=== PATIENT | female | born 1985 | race Two or more races ===

== ENCOUNTER 2019-11-24 08:21 | Inpatient (IN) | payer BC ==
[2019-11-24] VITALS (15 sets, daily range): BP systolic 90–135; BP diastolic 54–69
[~2019-11-24] VITALS: Ht 157.5 cm; Wt 78.9 kg
[~2019-11-24 08:21] MED LIST: ALBUTEROL SULF8.5 G1 INH; FLONASE ALLERG9.9 ML NS; JUNEL1 EAC1 PO; LEVOTHYROXINE75 MCG ORAL
[2019-11-24 09:31] LABS: HEMOGLOBIN 15.9 G/DL (12.0-16.0); MEAN CORPUSCULAR VOLUME 95 FL (80-99); PLATELET COUNT 226 K/UL (150-450); RED BLOOD COUNT 4.83 M/UL (4.20-5.40); RED CELL DISTRIBUTION WIDTH 11.3 % (11.6-14.8); WHITE BLOOD COUNT 12.2 K/UL (4.8-10.8)
[2019-11-24 09:39] LABS: ANION GAP 10 mmol/L (5-15); BLOOD UREA NITROGEN 6 mg/dL (7-18); CALCIUM 8.8 MG/DL (8.5-10.1); CARBON DIOXIDE 24 MMOL/L (21-32); CHLORIDE 106 MMOL/L (98-107); CREATININE 0.9 MG/DL (0.55-1.30); POTASSIUM 3.8 MMOL/L (3.5-5.1); SODIUM 140 MMOL/L (136-145)
[2019-11-24 09:40] LABS: INR 0.9 (0.9-1.1)
[2019-11-24] MEDS ORDERED: fentaNYL 100 mcg/2 mL IV ONE (09:44)
[2019-11-24] MEDS ORDERED: Midazolam 2mg/2ml Inj ONE (09:45)
[2019-11-24] MEDS ORDERED: Lidocaine 1% MPF 10mg/ml 5ml ONE (09:50)
[2019-11-24] MEDS ORDERED: Bupivacaine w/Epi 0.5% 30ml Vial INJ ONE (10:42)
[2019-11-24] MEDS ORDERED: Ropivacaine 5mg/ml Vial 20ml INJ ONE (10:42)
[2019-11-24] MEDS ORDERED: NeoSporin Gu Irrig 1ml Amp IRRIG ONE (10:42)
[2019-11-24] MEDS ORDERED: Bacitracin 50000 Units Vial ONE (10:42)
[2019-11-24] MEDS ORDERED: Rocuronium Bromide 50mg/5ml Inj IV ONE (10:44)
[2019-11-24] MEDS ORDERED: Succinylcholine 20mg/ml 10ml vial ONE (10:44)
[2019-11-24] MEDS ORDERED: cefOXitin 1gm Inj ONE (10:44)
[2019-11-24] MEDS ORDERED: TransDerm Scop 1.5mg/72HR Patch TDERMAL ONE (10:56)
[2019-11-24] MEDS ORDERED: NS Irrig 1000ml ONE (11:00)
[2019-11-24] MEDS ORDERED: Sterile Water Irrig 1000ml IRRIG ONE (11:00)
[2019-11-24] MEDS ORDERED: LR 1000ml ONE (11:00)
--- NOTE | 2019-11-24 11:00 | Pre-Procedure Note/Attestation ---
Pre-Procedure Note/Attestation Complete Prior to Procedure Planned Procedure: not applicable Procedure Narrative: abdominal myomectomy Indications for Procedure Pre-Operative Diagnosis: symptomatic mtyomata Attestation I attest that I discussed the nature of the procedure; its benefits; risks and complications; and alternatives (and the risks and benefits of such alternatives ), prior to the procedure, with the patient (or the patient's legal sales representative raw fibers). I attest that, if there was a reasonable possibility of needing a blood transfusion, the patient (or the patient's legal sales representative raw fibers) was given the [facility] standardized written summary, pursuant to the Amado Tiesha Blood Safety Act ([place] Health and Safety Code # 1645, as amended). I attest that I re-evaluated the patient just prior to the surgery and that there has been no change in the patient's H&P, except as documented below: Damien Bal MD Nov 24, 2019 11:00
--- NOTE | 2019-11-24 11:02 | Pre-Procedure Note/Attestation ---
Pre-Procedure Note/Attestation Complete Prior to Procedure Procedure Narrative: appendectomy Indications for Procedure Pre-Operative Diagnosis: pelvic lower abdominal pain Attestation I attest that I discussed the nature of the procedure; its benefits; risks and complications; and alternatives (and the risks and benefits of such alternatives ), prior to the procedure, with the patient (or the patient's legal communications representative). I attest that, if there was a reasonable possibility of needing a blood transfusion, the patient (or the patient's legal communications representative) was given the [facility] standardized written summary, pursuant to the Amado Tiesha Blood Safety Act ([place] Health and Safety Code # 1645, as amended). I attest that I re-evaluated the patient just prior to the surgery and that there has been no change in the patient's H&P, except as documented below: Kem Liz Nov 24, 2019 11:02
[2019-11-24] MEDS ORDERED: LR 1000ml 1,000 ML IVLG SCH (11:48)
--- NOTE | 2019-11-24 11:48 | Anethesia Preoperative Eval ---
Anesthesia Pre-op PMH/ROS General Date of Evaluation: Nov 24, 2019 Time of Evaluation: 10:50 Anesthesiologist: Arthur ASA Score: ASA 2 Mallampati Score Class I : Soft palate, uvula, fauces, pillars visible Class II: Soft palate, uvula, fauces visible Class III: Soft palate, base of uvula visible Class IV: Only hard plate visible Mallampati Classification: Class II Surgeon: Mally Diagnosis: Symptomatic uterine fibroids Surgical Procedure: Open myomectomy, appendectomy Anesthesia History: PONV Social History: smoking - h/o Family History: no anesthesia problems Allergies: Coded Allergies: AMOXICILLIN (Verified Allergy, Intermediate, hives, 11/24/19) Medications: see eMAR Patient NPO?: Yes Past Medical History Cardiovascular: Denies: HTN, CAD, VT, valve dz, arrhythmia, other Pulmonary: Reports: asthma - mild occasional inhalers; Denies: COPD, JOHN, other Gastrointestinal/Genitourinary: Reports: GERD - mild; Denies: CRI, ESRD, other Neurologic/Psychiatric: Reports: other - chronic pain; Denies: dementia, CVA, depression/anxiety, TIA Endocrine: Denies: DM, hypothyroidism, steroids, other HEENT: Denies: cataract (L), cataract (R), glaucoma, COMANCHE (L), COMANCHE (R), other Hematology/Immune: Denies: anemia, DVT, bleeding disorder, other Musculoskeletal/Integumentary: Reports: other - alopecia; Denies: OA, RA, DJD, DDD, edema PMH Narrative: as above PSxH Narrative: endometrial ablation Anesthesia Pre-op Phys. Exam Physician Exam Last Vital Signs Date Time Temp Pulse Resp B/P (MAP) Pulse Ox O2 Delivery O2 Flow Rate FiO2 11/24/19 09:17 Room Air 11/24/19 09:07 98.6 85 18 135/65 (88) 99 Constitutional: NAD Neurologic: CN 2-12 intact Cardiovascular: RRR, no M/R/G Respiratory: CTA Gastrointestinal: S/NT/ND Airway Exam Mallampati Score: Class II MO: full Neck: flexible ROM: full Teeth: intact Dentures: no upper, no lower Anesthesia Pre-op A/P Labs Hematology Test 11/24/19 09:15 White Blood Count 12.2 K/UL (4.8-10.8) H Red Blood Count 4.83 M/UL (4.20-5.40) Hemoglobin 15.9 G/DL (12.0-16.0) Hematocrit 46.0 % (37.0-47.0) Mean Corpuscular Volume 95 FL (80-99) Mean Corpuscular Hemoglobin 32.8 PG (27.0-31.0) H Mean Corpuscular Hemoglobin Concent 34.5 G/DL (32.0-36.0) Red Cell Distribution Width 11.3 % (11.6-14.8) L Platelet Count 226 K/UL (150-450) Mean Platelet Volume 7.4 FL (6.5-10.1) Neutrophils (%) (Auto) % (45.0-75.0) Lymphocytes (%) (Auto) % (20.0-45.0) Monocytes (%) (Auto) % (1.0-10.0) Eosinophils (%) (Auto) % (0.0-3.0) Basophils (%) (Auto) % (0.0-2.0) Differential Total Cells Counted 100 Neutrophils % (Manual) 86 % (45-75) H Lymphocytes % (Manual) 12 % (20-45) L Monocytes % (Manual) 1 % (1-10) Eosinophils % (Manual) 1 % (0-3) Basophils % (Manual) 0 % (0-2) Band Neutrophils 0 % (0-8) Platelet Estimate Adequate Platelet Morphology Normal Red Blood Cell Morphology Normal Coagulation Test 11/24/19 09:15 Prothrombin Time 10.0 SEC (9.30-11.50) Prothromb Time International Ratio 0.9 (0.9-1.1) Activated Partial Thromboplast Time 25 SEC (23-33) Chemistry Test 11/24/19 09:15 Sodium Level 140 MMOL/L (136-145) Potassium Level 3.8 MMOL/L (3.5-5.1) Chloride Level 106 MMOL/L (98-107) Carbon Dioxide Level 24 MMOL/L (21-32) Anion Gap 10 mmol/L (5-15) Blood Urea Nitrogen 6 mg/dL (7-18) L Creatinine 0.9 MG/DL (0.55-1.30) Estimat Glomerular Filtration Rate > 60 mL/min (>60) Glucose Level 99 MG/DL (74-106) Calcium Level 8.8 MG/DL (8.5-10.1) Urine Test Test 11/24/19 08:54 Urine HCG, Qualitative Negative (NEGATIVE) Studies Pre-op Studies: EKG - NSR Risk Assessment & Plan Assessment: ASA 2 Plan: GA with ETT, PONV prevention Status Change Before Surgery: No Pre-Antibiotics Drug: Cefoxitin `1gr Given Within 1 Hr of Incision: Yes Time Given: 11:26 Juancarlos Gibson MD Nov 24, 2019 11:48
[2019-11-24] MEDS ORDERED: TransDerm Scop 1.5mg/72HR Patch TDERMAL SCH (11:50)
[2019-11-24] MEDS ORDERED: Morphine Sulfate 10mg/ml Inj ONE (11:52)
[2019-11-24] MEDS ORDERED: Ketorolac 30mg Inj ONE (11:52)
[2019-11-24] MEDS ORDERED: Glycopyrrolate 0.2mg/ml 1ml Vial ONE (11:52)
[2019-11-24] MEDS ORDERED: Sodium Chloride 10ml vial INJ ONE (11:52)
[2019-11-24] MEDS ORDERED: Neostigmine 1mg/ml 10ml Inj ONE (11:52)
[2019-11-24] MEDS ORDERED: Meperidine 25mg/0.5ml Inj (FOR RIGORS ONLY) IV PRN (12:00)
[2019-11-24] MEDS ORDERED: Metoclopramide 10mg/2ml Inj IVP PRN (12:00)
[2019-11-24] MEDS ORDERED: DiphenhydrAMINE 50mg/ml Inj IVP PRN (12:00)
[2019-11-24] MEDS ORDERED: Acetaminophen (Non formulary) 100 ML IV ONE (12:00)
[2019-11-24] MEDS ORDERED: Ketorolac 30mg Inj IV PRN (12:00)
--- NOTE | 2019-11-24 12:16 | Brief Operative Note ---
Immediate Post Operative Note Operative Note Pre-op Diagnosis: pelvic lower abdominal pain Procedure: 1. open lysis of adhesions 2. open appendectomy 3. see Dr. Alcantara report Post-op Diagnosis: same as pre-op Surgeon: analilia liz md Additional Surgeons: jaquelin alcantara md Anesthesia: general, local Specimen: yes Complications: none Condition: stable Fluids: see Estimated Blood Loss: minimal Drains: none Implant(s) used?: No Analilia Liz Nov 24, 2019 12:16
--- NOTE | 2019-11-24 12:22 | Brief Operative Note ---
Immediate Post Operative Note Operative Note Pre-op Diagnosis: symptomatic mtyomata Procedure: abdominal myomectomy, lysis of adhesions, appendectomy Post-op Diagnosis: same as pre-op plus - pelvic adhesions Surgeon: [employer] Supervisor: latrell Anesthesiologist: jossie Anesthesia: general Specimen: yes Complications: none Condition: stable Fluids: 2000 cc lactated ringers Estimated Blood Loss: none Drains: none Implant(s) used?: No Damien Bal MD Nov 24, 2019 12:21
[2019-11-24] MEDS ORDERED: Milk of Magnesia 30ml Ud ORAL PRN (12:30)
[2019-11-24] MEDS ORDERED: Sennosides 8.6mg tab ORAL PRN (12:30)
[2019-11-24] MEDS ORDERED: Morphine Sulfate 2mg/ml Inj(IV/IM USE ONLY) IVP PRN (12:30)
--- NOTE | 2019-11-24 12:37 | Immediate Post-Op Evaluation ---
Immediate Post-Op Evalulation Immediate Post-Op Evalulation Procedure: Open abdominal myomectomy, appendectomy Date of Evaluation: Nov 24, 2019 Time of Evaluation: 12:36 IV Fluids: 1000 Blood Products: none Estimated Blood Loss: 50 Urinary Output: 250 Blood Pressure Systolic: 120 Blood Pressure Diastolic: 62 Pulse Rate: 84 Respiratory Rate: 20 O2 Sat by Pulse Oximetry: 99 Temperature (Fahrenheit): 98.1 Pain Score (1-10): 1 Nausea: No Vomiting: No Complications none Patient Status: reacts, patent, extubated, none Hydration Status: adequate Juancarlos Gibson MD Nov 24, 2019 12:37
[2019-11-24] MEDS ORDERED: Midazolam 2mg/2ml Inj IVP ONE (12:45)
--- NOTE | 2019-11-24 14:15 | NUR ---
NURSE NOTES: Received pt from PACU and report from OBI Howe. Pt awake, verbally responsive, alert and orient x4. On NC 2L. Breathing even and unlabored. No acute distress note. Denied any pain at this time. Vital signs stable. Surgical wound dressing C/D/I. Applied ice pack on surgical area. Wharton noted intact and patent draining yellow urine. IV site intact and patent. Pt on SCD. All belongings were accounted for. Oriented pt to room. Side rails up x2. Call light within reach. Will continue to monitor.
--- NOTE | 2019-11-24 14:44 | History and Physical ---
Tamera Christy REVENUE OFFICER 11/24/19 1444: History of Present Illness General Date patient seen: Nov 24, 2019 Time patient seen: 13:45 Reason for Hospitalization: elective surgery Present Illness HPI 34 y/old female with PMH of hypothyroidism, mild asthma fibroid uterus, s/ recent , UFE, presented for elective abdominal momectomy and appendectomy. Patient just undergone surgery and admitted to [facility] floor for further management. She is already awake and responsive. Hemodynamically stable. She reports some soreness at the incision site. No other complaints. No chest pain , no SOB No cough or congestion. Preop COVID 19 negative. No n/v/diarrhea. No recent dysuria. Allergy: Reports allergy to Amoxicillin/hives, unsute if able to tolerate other PCNs. Social: prior hx of smoking 3-4 cig/day for few years, quit about a week ago. Denies ETOH abuse and illicit drug use. Not . Works at [employer] as a [employer] character '[employer]", currently not working due to global pandemic. Residence: lives at home at [facility] Allergies: Coded Allergies: AMOXICILLIN (Verified Allergy, Intermediate, hives, 11/24/19) COVID-19 Screening Contact w/high risk pt: No Experienced COVID-19 symptoms?: No Medication History Scheduled Albuterol Sulfate* (Albuterol Sulfate Hfa*), 2 PUFF INH PRN, (Reported) Fluticasone Propionate (Flonase Allergy Relief), 9.9 ML NS PRN, (Reported) Levothyroxine Sodium* (Levothyroxine Sodium*), 150 MCG ORAL DAILY, (Reported) Norethindrone A-E Estradiol (Junel), 1 EACH PO DAILY, (Reported) Patient History Healthcare decision maker Resuscitation status Advanced Directive on File Review of Systems Constitutional: Reports: no symptoms Eye: Reports: no symptoms ENT: Reports: no symptoms Respiratory: Reports: other - hx of mild asthma, only on prn Albuterol inhaler Cardiovascular: Reports: no symptoms Gastrointestinal: Reports: no symptoms Genitourinary: Reports: other - hx of fibroid uteris, s/p prior UFE Musculoskeletal: Reports: no symptoms Skin: Reports: no symptoms Psychiatric: Reports: no symptoms Neurological: Reports: no symptoms Endocrine: Reports: other - hypothyroidism Hematologic/Lymphatic: Reports: no symptoms Physical Exam General Appearance: no apparent distress, alert - awake, young female Lines, tubes and drains: peripheral HEENT: normocephalic, atraumatic, anicteric, PERRL Neck: non-tender, normal alignment, supple Respiratory/Chest: chest wall non-tender, lungs clear, no respiratory distress , no accessory muscle use Cardiovascular/Chest: normal peripheral pulses, normal rate Abdomen: soft - no BS, mild diffused tenderness, large abdominal dressing lower abdomen C/D/I Extremities: normal range of motion, non-tender, no calf tenderness, normal capillary refill Skin Exam: normal pigmentation, warm/dry, other - some tattoos noted 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, no motor/sensory deficits, alert, oriented x 3, responsive Last 24 Hour Vital Signs Date Time Temp Pulse Resp B/P (MAP) Pulse Ox O2 Delivery O2 Flow Rate FiO2 11/24/19 13:49 65 15 131/68 98 Nasal Cannula 3 11/24/19 13:49 97.9 11/24/19 13:34 84 13 126/67 97 Nasal Cannula 3 11/24/19 13:23 97.9 11/24/19 13:19 79 13 118/64 98 Nasal Cannula 3 11/24/19 13:08 70 14 131/62 98 Nasal Cannula 3 11/24/19 12:53 71 17 124/64 98 Simple Mask 6 11/24/19 12:49 72 11 124/61 97 Simple Mask 6 11/24/19 12:39 77 19 126/59 97 Simple Mask 6 11/24/19 12:37 84 20 99 11/24/19 12:34 84 16 124/63 98 Simple Mask 6 11/24/19 12:29 98.2 89 15 128/54 98 Simple Mask 6 11/24/19 09:17 Room Air 11/24/19 09:07 98.6 85 18 135/65 (88) 99 Laboratory Tests Test 11/24/19 08:54 11/24/19 09:15 Urine HCG, Qualitative Negative (NEGATIVE) White Blood Count 12.2 K/UL (4.8-10.8) H Red Blood Count 4.83 M/UL (4.20-5.40) Hemoglobin 15.9 G/DL (12.0-16.0) Hematocrit 46.0 % (37.0-47.0) Mean Corpuscular Volume 95 FL (80-99) Mean Corpuscular Hemoglobin 32.8 PG (27.0-31.0) H Mean Corpuscular Hemoglobin Concent 34.5 G/DL (32.0-36.0) Red Cell Distribution Width 11.3 % (11.6-14.8) L Platelet Count 226 K/UL (150-450) Mean Platelet Volume 7.4 FL (6.5-10.1) Neutrophils (%) (Auto) % (45.0-75.0) Lymphocytes (%) (Auto) % (20.0-45.0) Monocytes (%) (Auto) % (1.0-10.0) Eosinophils (%) (Auto) % (0.0-3.0) Basophils (%) (Auto) % (0.0-2.0) Differential Total Cells Counted 100 Neutrophils % (Manual) 86 % (45-75) H Lymphocytes % (Manual) 12 % (20-45) L Monocytes % (Manual) 1 % (1-10) Eosinophils % (Manual) 1 % (0-3) Basophils % (Manual) 0 % (0-2) Band Neutrophils 0 % (0-8) Platelet Estimate Adequate Platelet Morphology Normal Red Blood Cell Morphology Normal Prothrombin Time 10.0 SEC (9.30-11.50) Prothromb Time International Ratio 0.9 (0.9-1.1) Activated Partial Thromboplast Time 25 SEC (23-33) Sodium Level 140 MMOL/L (136-145) Potassium Level 3.8 MMOL/L (3.5-5.1) Chloride Level 106 MMOL/L (98-107) Carbon Dioxide Level 24 MMOL/L (21-32) Anion Gap 10 mmol/L (5-15) Blood Urea Nitrogen 6 mg/dL (7-18) L Creatinine 0.9 MG/DL (0.55-1.30) Estimat Glomerular Filtration Rate > 60 mL/min (>60) Glucose Level 99 MG/DL (74-106) Calcium Level 8.8 MG/DL (8.5-10.1) Height (Feet): 5 Height (Inches): 2.00 Weight (Pounds): 155 Medications Current Medications Medications (Trade) Dose Ordered Sig/Dasha Route PRN Reason Start Time Stop Time Status Last Admin Dose Admin Acetaminophen (Tylenol) 650 mg Q4H PRN ORAL FEVER 11/24/19 12:30 12/24/19 12:29 Al Hydroxide/Mg Hydroxide (Mylanta) 15 ml Q6H PRN ORAL DYSPEPSIA 11/24/19 12:30 12/24/19 12:29 Ciprofloxacin 200 ml @ 200 mls/hr Q12HR IVPB 11/24/19 21:00 12/01/19 20:59 UNV Dextrose/ Electrolytes 1,000 ml @ 100 mls/hr Q10H IV 11/24/19 12:18 12/24/19 12:17 UNV Diphenhydramine HCl (Benadryl) 25 mg Q15M PRN IVP Itching 11/24/19 12:00 11/24/19 21:00 Diphenhydramine HCl (Benadryl) 25 mg Q8H PRN ORAL Itching/Pruritis 11/24/19 12:30 12/24/19 12:29 Docusate Sodium (Colace) 100 mg TWICE A DAY ORAL 11/24/19 18:00 12/24/19 17:59 Magnesium Hydroxide (Mom) 30 ml BIDPRN PRN ORAL Constipation 11/24/19 12:30 12/24/19 12:29 Meperidine HCl (Demerol) 25 mg Q15M PRN IV Shivering 11/24/19 12:00 11/24/19 21:00 11/24/19 12:53 Metoclopramide HCl (Reglan) 10 mg Q1H PRN IVP Nausea & Vomiting 11/24/19 12:00 11/24/19 21:00 Metronidazole 100 ml @ 100 mls/hr Q8HR IVPB 11/24/19 14:00 12/01/19 13:59 UNV Morphine Sulfate (Morphine Sulfate) 1 mg Q4H PRN IVP pain scale 1-3 11/24/19 12:30 12/01/19 12:29 Morphine Sulfate (Morphine Sulfate) 2 mg Q4H PRN IVP pain scale 4-6 11/24/19 12:30 12/01/19 12:29 Morphine Sulfate (Morphine Sulfate) 4 mg Q4H PRN IVP pain score 7-10 11/24/19 12:30 12/01/19 12:29 Ondansetron HCl (Zofran) 4 mg Q6H PRN IVP Nausea & Vomiting 11/24/19 12:30 12/24/19 12:29 Scopolamine (TransDerm Scop 1.5mg/72HR Patch) 1.5 mg ONCE TDERMAL 11/24/19 11:50 11/24/19 23:59 Sennosides (Senokot) 8.6 mg BIDPRN PRN ORAL Constipation 11/24/19 12:30 12/24/19 12:29 Temazepam (RestoriL) 7.5 mg DAILYPRN PRN ORAL Insomnia 11/24/19 12:30 12/01/19 12:29 Assessment/Plan Assessment/Plan: ASSESSMENT uterine fibroids s/p abdominal myomectomy and appendectomy s/p recent UFE mild asthma prior smoker- quit hypothyroidism Allergy to Amoxicillin PLAN OF CARE MS floor NPO IVF empiric abx agree with Cipro and Flagyl, given allergy to Amoxicillin /unknown if will tolerate other PCN derivative pain management IS at the bedside OOB to chair in am as tolerated surgical wound care per surgeon recs resume diet when bowel function returns resume Synthroid HHN prn DVT prophylaxis with SCD bowel regimen when start eating supportive care case discussed and evaluated by supervising physician Danie Christensen MD 11/24/19 1809: History of Present Illness General Reason for Hospitalization: elective surgery Present Illness Allergies: Coded Allergies: AMOXICILLIN (Verified Allergy, Intermediate, hives, 11/24/19) Medication History Scheduled Albuterol Sulfate* (Albuterol Sulfate Hfa*), 2 PUFF INH PRN, (Reported) Fluticasone Propionate (Flonase Allergy Relief), 9.9 ML NS PRN, (Reported) Levothyroxine Sodium* (Levothyroxine Sodium*), 150 MCG ORAL DAILY, (Reported) Norethindrone A-E Estradiol (Junel), 1 EACH PO DAILY, (Reported) Assessment/Plan Assessment/Plan: Patient and examined with . Agree with above A&P as it reflects our joint deliberations. POD 0 doing well, pain control/supportive care, IS, cristian-operative Abx, OOB, DVT Px, advance diet per surgery Tamera Christy NP Nov 24, 2019 14:44 Danie Christensen MD Nov 24, 2019 18:09
[2019-11-24] MEDS: Morphine Sulfate 4mg/ml Inj (IV USE ONLY) IVP PRN ×2 (15:45→20:16)
--- NOTE | 2019-11-24 16:07 | NUR ---
CASE MANAGEMENT:INITIAL REVIEW 34YR OLD FEMALE HERE FOR SCHEDULE SURGERY CC:PELVIC LOWER ABDOMINAL PAIN SI:SYMPTOMATIC UTERINE FIBROIDS 98.6 85 18 135/65 99% ON RA WBC 12.2 IS:IN SURGERY NOW OPEN OMENTECTOMY APPENDECTOMY \: 3E MED SURG UNIT DCP:HOME WHEN STABLE
[2019-11-24] MEDS: D5 1/2NS w/KCl 20mEq 1,000 ML IV SCH (16:49)
--- NOTE | 2019-11-24 17:45 | Operative Note - Dictated ---
DATE OF OPERATION: 11/24/2019 PREOPERATIVE DIAGNOSES: 1. Pelvic lower abdominal pain. 2. Symptomatic myomata. POSTOPERATIVE DIAGNOSES: 1. Pelvic lower abdominal pain. 2. Symptomatic myomata. OPERATION: 1. Open lysis of adhesions. 2. Open appendectomy. 3. Performed by Dr. Damien Bal abdominal myomectomy. ATTENDING SURGEON: Kem Liz MD. OTHER SURGEON: Damien Bal MD. ANESTHESIOLOGIST: Juancarlos Gibson MD. ANESTHESIA: General INCOME TAX AUDITOR. ESTIMATED BLOOD LOSS: Minimal. IV FLUIDS: Please see anesthesia records. COMPLICATIONS: None. DRAINS: None. COUNTS: Sponge and needle counts were correct x2. WOUND CLASSIFICATION: Class 3. SPECIMENS: 1. Myomata from Dr. Bal' case. 2. Appendix. INDICATIONS FOR PROCEDURE: This is a very pleasant 34-year-old female who was initially seen by Dr. Damien Bal for evaluation of abdominal pelvic pain. She was identified to have multiple myomata that were symptomatic and causing discomfort. Furthermore, in the past, patient has had complaints of pelvic pain and lower abdominal pain that has purported and confused with appendicitis given her symptoms and clinical presentation. She is currently planned to have an abdominal myomectomy by Dr. Damien Bal and he has consulting me in evaluation and consideration of appendectomy given the patient's symptoms, concerns, and presenting history. I had a long discussion with the patient in regards to her findings, care, and care plan. We have discussed the potential appendicitis in the future and potential missed diagnosis as well as wrong diagnosis given her other abdominal complaints and history. She has ongoing lower abdominal pain for some time now and examinations purported and consistent with potential appendicitis in the past and given this, a consideration for an appendectomy has been made. In discussing the risks, benefits, and alternatives, patient has consented and requested to proceed with appendectomy during myomata. Furthermore given the patient's history of embolization and known likelihood of intraabdominal adhesions postprocedure, Dr. Bal asked me to assist him with this portion of procedure as well as the evaluation of the small bowel and adhesions as necessary. OPERATIVE NOTE: Patient was taken to the operating room and placed on the operating table in supine position with bilateral arms out. All bony prominences were well padded. SCDs placed. Preoperative time-out taken to identify the patient, procedure, operative staff, and surgical staff. General anesthesia was induced. Patient was intubated. The abdomen was clipped, prepped, and draped in standard surgical fashion. Dr. Bal made a Pfannenstiel incision, carried down through subcutaneous tissue to the fascia. Fascia was incised and entry into the peritoneal cavity was obtained. Retractors were placed upon it to assist with Dr. Bal in obtaining visualization of the uterus and omental adhesions identified in the pelvis myomata of the dome of the uterus and open lysis of adhesions was performed with Metzenbaum scissors and electrocautery as necessary. Once this was cleared and Dr. Bal completed his portion of the procedure, I identified the cecum followed by teniae down to the base where an appendix was identified. A window was made between the base of the appendix and mesoappendix. A 0 Vicryl tie was placed at the base of the appendix and it was ligated. It was then divided with electrocautery. The appendiceal base was then reinforced with a second layer of Lembert 3-0 silk interrupted sutures. The mesoappendix was then divided using electrocautery and once the artery was identified, it was clamped and ligated using a 3-0 silk tie. Upon completion, satisfactory appendectomy was performed open without complication. The base looked healthy, viable as well as the mesentery without any bleeding or leakage. The abdominal contents were allowed to fall back into the anatomic position. The omentum was placed back into the pelvis. Hemostasis was identified. The fascia was closed followed by the subcutaneous tissue and the skin. Dressings were applied. Patient tolerated the procedure well, was extubated, and was taken to postanesthetic care unit in stable condition. Kem Liz M.D. DR: NICHELLE JOB#: [id number] CC:
[2019-11-24] MEDS: Docusate 100mg cap ORAL SCH (18:00)
--- NOTE | 2019-11-24 19:17 | NUR ---
NURSE HAND-OFF: Important Events on Shift:Post-op Patient Status: stable Diet: NPO Pending Orders: N Pending Results/Labs:N Pending MD notification:N Latest Vital Signs: Temperature 97.8 , Pulse 99 , B/P 110 /63 , Respiratory Rate 20 , O2 SAT 97 , Nasal Cannula, O2 Flow Rate 3 . Vital Sign Comment: stable Latest Michael Fall Score: 35 Fall Risk: Medium Risk Safety Measures: Call light , Bed Alarm , Side Rails Side Rails x1, Bed position . Fall Precautions: N Report given to OBI He.
--- NOTE | 2019-11-24 19:18 | NUR ---
NURSE NOTES: Received report from OBI Elmore. Rounding is done. Patient is a/ox4, c/o pain 10/23 and will give medication as ordered. No any distress noted and breathing is even and unlabored on RA. Dressing on abdomen is c/d/i. IV site is intact and patent. IV fluid is running. [place] catheter is in place and draining to gravity. IS at bedside and encouraged to use. Bed is on alarm, locked, and lowest position. Call light within reach. Will continue to monitor.
[2019-11-24] MEDS ORDERED: LEVOXYL150 MCG ORAL (19:26)
[2019-11-24] MEDS ORDERED: JUNEL FE 1.5 M1 EACH PO (19:26)
--- NOTE | 2019-11-24 20:00 | Operative Note - Dictated ---
DATE OF OPERATION: 11/24/2019 SURGEON: Damien Ching MD CO-SURGEON: Kem Liz MD ANESTHESIA: General endotracheal. ANESTHESIOLOGIST: Juancarlos Gibson MD PREOPERATIVE DIAGNOSES: Symptomatic leiomyomata and pelvic pain. POSTOPERATIVE DIAGNOSES: Symptomatic leiomyomata and pelvic pain plus pelvic adhesions. PROCEDURES: Lysis of adhesions, abdominal myomectomy, and appendectomy (dictated by Dr. Liz as a separate procedure). ESTIMATED BLOOD LOSS: Less than 10 mL. COMPLICATIONS: None. SPONGE AND NEEDLE COUNT: Correct x2. INDICATIONS AND FINDINGS: Patient is a 34-year-old female who had undergone a successful uterine artery embolization. However with shrinkage of the myomata, the patient complained of pelvic pain and presents for relief of this pain. No other explanations for the pain is found in the patient's history. At the time of laparotomy, the patient's uterus was enlarged, irregular with multiple pedunculated subserous and intramural myomata. Pelvic adhesions were seen. The tubes and ovaries were grossly normal on both sides. The patient's appendix was removed prophylactically by Dr. Liz to rule out any mistaken causes for pelvic pain in the future. Findings at the time of laparotomy were noted and at the completion of the procedure there was no evidence of disruption of the genitourinary or gastrointestinal tract. Bleeding was controlled. PROCEDURE IN DETAIL: Under general endotracheal anesthesia, patient was prepped and draped and placed in the dorsal position. A Wharton catheter inserted. A Pfannenstiel incision used to enter the abdominal cavity. The uterus was delivered out of the Pfannenstiel incision and inspected. Findings described above were noted. The first procedure was a myomectomy. The serosa of the uterus was injected with dilute Pitressin (20 units of Pitressin and 50 mL of saline) and excised with cautery current. The myoma was excised from the intramural portion of the myoma and 2 pedunculated myomata were then excised and cleared off the fallopian tubes and round ligaments. A total of 5 myomata greater than 250 g were removed. The uterus was then closed in 2 layers with interrupted sutures of 1 chromic suture material and the bleeding points were cauterized. Dr. Liz then proceeded with lysis of adhesions and appendectomy. At the end of the case, the abdomen was copiously irrigated. No bleeding points were seen. Urine was clear. The abdominal cavity was closed. The peritoneal serosa was closed with interrupted sutures of 0 Vicryl. The muscle approximated with 0 Vicryl. The fascia was then closed with a running 1 Vicryl suture. The subcutaneous tissue was closed with interrupted 3-0 plain suture and the skin closed with skin clips. Patient tolerated the procedure and left the operating room in stable condition. Damien Ching M.D. DR: Pamela JOB#: [id number] CC: ALIS
[2019-11-25] VITALS: BP 100/64
[2019-11-25] MEDS: Morphine Sulfate 4mg/ml Inj (IV USE ONLY) IVP PRN ×4 (01:08→16:16)
[2019-11-25] MEDS: D5 1/2NS w/KCl 20mEq 1,000 ML IV SCH ×3 (01:08→14:30)
[2019-11-25 04:00] VITALS: BP 115/58
[2019-11-25 06:23] LABS: BASOPHILS % (AUTO) 0.4 % (0.0-2.0); EOSINOPHILS % (AUTO) 1.9 % (0.0-3.0); HEMATOCRIT 39.4 % (37.0-47.0); HEMOGLOBIN 13.3 G/DL (12.0-16.0); LYMPHOCYTES % (AUTO) 15.4 % (20.0-45.0); MEAN CORPUSCULAR VOLUME 98 FL (80-99); MONOCYTES % (AUTO) 5.4 % (1.0-10.0); NEUTROPHILS % (AUTO) 76.9 % (45.0-75.0); PLATELET COUNT 201 K/UL (150-450); RED BLOOD COUNT 4.04 M/UL (4.20-5.40); RED CELL DISTRIBUTION WIDTH 11.6 % (11.6-14.8); WHITE BLOOD COUNT 9.4 K/UL (4.8-10.8)
[2019-11-25 06:44] LABS: ANION GAP 7 mmol/L (5-15); BLOOD UREA NITROGEN 5 mg/dL (7-18); CALCIUM 8.4 MG/DL (8.5-10.1); CARBON DIOXIDE 26 MMOL/L (21-32); CHLORIDE 104 MMOL/L (98-107); CREATININE 0.9 MG/DL (0.55-1.30); POTASSIUM 4.1 MMOL/L (3.5-5.1); SODIUM 137 MMOL/L (136-145)
--- NOTE | 2019-11-25 07:24 | NUR ---
NURSE HAND-OFF: Important Events on Shift:N/A Patient Status: [STABLE] Diet: [NPO EXCEPT ICE CHIPS AND MEDS] Pending Orders: [Y] Pending Results/Labs:[Y] Pending MD notification:[N] Latest Vital Signs: Temperature 99.8 , Pulse 65 , B/P 115 /58 , Respiratory Rate 18 , O2 SAT 95 , Room Air, O2 Flow Rate 3 . Vital Sign Comment: [STABLE] Latest Michael Fall Score: 35 Fall Risk: Medium Risk Safety Measures: Call light Within Reach, Bed Alarm Zone 2, Side Rails Side Rails x2, Bed position Low and Locked. Fall Precautions: Yellow Socks Door Sign Report given to [OLIVER CROCKER].
[2019-11-25 08:00] VITALS: BP 98/58
--- NOTE | 2019-11-25 08:00 | NUR ---
NURSE NOTES: Received report from Neri CROCKER. pt a/a/o x4 laying in bed with no signs of distress or other issues at this time. surgical dressing dry and intact. Wharton cath in place draining to gravity. IV on the right FA gauge #20 running D5 1/2 NS +20mEq@100ml/hr. call light within reach, bed in lowest position. side rales up x2. I will f/u as needed.
--- NOTE | 2019-11-25 08:14 | 48 Hour Post Anesthesia Eval ---
Post Anesthesia Evaluation Procedure: Open abdominal myomectomy, appendectomy Date of Evaluation: Nov 25, 2019 Time of Evaluation: 08:13 Blood Pressure Systolic: 116 0: 74 Pulse Rate: 68 Respiratory Rate: 20 Temperature (Fahrenheit): 98.6 O2 Sat by Pulse Oximetry: 98 Airway: patent Nausea: No Vomiting: No Pain Intensity: 3 Hydration Status: adequate Cardiopulmonary Status: stable Mental Status/LOC: patient returned to baseline Follow-up Care/Observations: n/a Post-Anesthesia Complications: none Follow-up care needed: N/A Juancarlos Gibson MD Nov 25, 2019 08:14
[2019-11-25] MEDS: Docusate 100mg cap ORAL SCH ×2 (08:33→16:15)
[2019-11-25] MEDS: Morphine Sulfate 2mg/ml Inj(IV/IM USE ONLY) IVP PRN (08:39)
--- NOTE | 2019-11-25 09:25 | NUR ---
PT EVALUATION NOTE Patient seen for initial evaluation. Patient presents with generalized weakness and pain with mobility. Patient instructed in log roll technique for in/OOB, able to perform with SBA. Transfers with SBA, no AD. Patient ambulates 125 ft with slowed pace, slightly unsteady however no loss of balance, hand hold assist for safety. Patient will benefit from skilled inpatient PT intervention to increase strength and postural stability for improved level of functional mobility and safety. Anticipate discharge home once medically cleared by MD. No DME needs identified at this time. Addendum: 11/25/19 at 1206 by BERYL DAVISON PT Amended: Links added.
--- NOTE | 2019-11-25 10:01 | General Surgery Progress Note ---
General Surgery-Progress Note Subjective Procedure Performed abdominal myomectomy, lysis of adhesions, appendectomy Symptoms: improved, pain decreased Objective Last 24 Hour Vital Signs Date Time Temp Pulse Resp B/P (MAP) Pulse Ox O2 Delivery O2 Flow Rate FiO2 11/25/19 09:00 Room Air 11/25/19 08:14 68 20 98 11/25/19 08:00 98.1 68 18 98/58 (71) 97 11/25/19 05:53 99.8 11/25/19 04:00 99.8 65 18 115/58 (77) 95 11/25/19 00:00 98.3 61 18 100/64 (76) 97 11/24/19 21:00 Room Air 11/24/19 20:00 98.0 58 18 90/63 (72) 98 11/24/19 16:00 97.8 99 20 110/63 (79) 97 11/24/19 15:01 97.5 78 132/60 (84) 11/24/19 14:30 97.8 75 130/67 (88) 11/24/19 14:04 97.9 65 13 128/69 97 Nasal Cannula 3 11/24/19 13:49 65 15 131/68 98 Nasal Cannula 3 11/24/19 13:49 97.9 11/24/19 13:34 84 13 126/67 97 Nasal Cannula 3 11/24/19 13:23 97.9 11/24/19 13:19 79 13 118/64 98 Nasal Cannula 3 11/24/19 13:08 70 14 131/62 98 Nasal Cannula 3 11/24/19 12:53 71 17 124/64 98 Simple Mask 6 11/24/19 12:49 72 11 124/61 97 Simple Mask 6 11/24/19 12:39 77 19 126/59 97 Simple Mask 6 11/24/19 12:37 84 20 99 11/24/19 12:34 84 16 124/63 98 Simple Mask 6 11/24/19 12:29 98.2 89 15 128/54 98 Simple Mask 6 I&O Intake and Output 11/24/19 11/25/19 19:00 07:00 Intake Total 1100 ml 1500 ml Output Total 530 ml 600 ml Balance 570 ml 900 ml Intake IV Total 1100 ml 1500 ml Output Urine Total 480 ml 600 ml Estimated Blood Loss 50 ml # Voids 1 Dressing: dry Wound: clean Drains: none Cardiovascular: RSR Respiratory: clear Abdomen: soft, flat, scaphoid, tenderness, present bowel sounds Extremities: no edema, no tenderness, no cyanosis Laboratory Tests Test 11/25/19 04:55 White Blood Count 9.4 K/UL (4.8-10.8) Red Blood Count 4.04 M/UL (4.20-5.40) L Hemoglobin 13.3 G/DL (12.0-16.0) Hematocrit 39.4 % (37.0-47.0) Mean Corpuscular Volume 98 FL (80-99) Mean Corpuscular Hemoglobin 32.9 PG (27.0-31.0) H Mean Corpuscular Hemoglobin Concent 33.7 G/DL (32.0-36.0) Red Cell Distribution Width 11.6 % (11.6-14.8) Platelet Count 201 K/UL (150-450) Mean Platelet Volume 7.6 FL (6.5-10.1) Neutrophils (%) (Auto) 76.9 % (45.0-75.0) H Lymphocytes (%) (Auto) 15.4 % (20.0-45.0) L Monocytes (%) (Auto) 5.4 % (1.0-10.0) Eosinophils (%) (Auto) 1.9 % (0.0-3.0) Basophils (%) (Auto) 0.4 % (0.0-2.0) Sodium Level 137 MMOL/L (136-145) Potassium Level 4.1 MMOL/L (3.5-5.1) Chloride Level 104 MMOL/L (98-107) Carbon Dioxide Level 26 MMOL/L (21-32) Anion Gap 7 mmol/L (5-15) Blood Urea Nitrogen 5 mg/dL (7-18) L Creatinine 0.9 MG/DL (0.55-1.30) Estimat Glomerular Filtration Rate > 60 mL/min (>60) Glucose Level 118 MG/DL (74-106) H Calcium Level 8.4 MG/DL (8.5-10.1) L Assessment Post-op Diagnosis labs stable post op, findings shared with patient Plan Additional Comments sequeira out, ambulate, heplock iv when ambulating. respiratory therapy for history of smoking. Damien Bal MD Nov 25, 2019:01
[2019-11-25] MEDS: Albuterol ud Inhalation HHN PRN (10:20)
--- NOTE | 2019-11-25 11:27 | Pulmonology Progress Note ---
Christy Tamera VOCATIONAL TEACHER 11/25/19 1127: Subjective Allergies: Coded Allergies: AMOXICILLIN (Verified Allergy, Intermediate, hives, 11/24/19) Subjective post op day #1 afebrile, mild leukocytosis resolved seen earlier by surgeon started on CL diet pain controlled Objective Last 24 Hour Vital Signs Date Time Temp Pulse Resp B/P (MAP) Pulse Ox O2 Delivery O2 Flow Rate FiO2 11/25/19 10:35 69 18 99 Room Air 21 77 18 97 11/25/19 10:19 77 18 97 Room Air 21 11/25/19 09:09 98.6 11/25/19 09:00 Room Air 11/25/19 08:14 68 20 98 11/25/19 08:00 98.1 68 18 98/58 (71) 97 11/25/19 05:53 99.8 11/25/19 04:00 99.8 65 18 115/58 (77) 95 11/25/19 00:00 98.3 61 18 100/64 (76) 97 11/24/19 21:00 Room Air 11/24/19 20:00 98.0 58 18 90/63 (72) 98 11/24/19 16:00 97.8 99 20 110/63 (79) 97 11/24/19 15:01 97.5 78 132/60 (84) 11/24/19 14:30 97.8 75 130/67 (88) 11/24/19 14:04 97.9 65 13 128/69 97 Nasal Cannula 3 11/24/19 13:49 65 15 131/68 98 Nasal Cannula 3 11/24/19 13:49 97.9 11/24/19 13:34 84 13 126/67 97 Nasal Cannula 3 11/24/19 13:23 97.9 11/24/19 13:19 79 13 118/64 98 Nasal Cannula 3 11/24/19 13:08 70 14 131/62 98 Nasal Cannula 3 11/24/19 12:53 71 17 124/64 98 Simple Mask 6 11/24/19 12:49 72 11 124/61 97 Simple Mask 6 11/24/19 12:39 77 19 126/59 97 Simple Mask 6 11/24/19 12:37 84 20 99 11/24/19 12:34 84 16 124/63 98 Simple Mask 6 8/10/20 12:29 98.2 89 15 128/54 98 Simple Mask 6 Intake and Output 11/24/19 11/25/19 19:00 07:00 Intake Total 1100 ml 1500 ml Output Total 530 ml 600 ml Balance 570 ml 900 ml Intake IV Total 1100 ml 1500 ml Output Urine Total 480 ml 600 ml Estimated Blood Loss 50 ml # Voids 1 Objective General Appearance: no apparent distress, alert - awake, young female Lines, tubes and drains: peripheral HEENT: normocephalic, atraumatic, anicteric, PERRL Neck: non-tender, normal alignment, supple Respiratory/Chest: chest wall non-tender, lungs clear, no respiratory distress , no accessory muscle use Cardiovascular/Chest: normal peripheral pulses, normal rate Abdomen: soft - no BS, mild diffused tenderness, lower abdominal dressing C/D/ I Extremities: normal range of motion, non-tender, no calf tenderness, normal capillary refill Skin Exam: normal pigmentation, warm/dry, body tattoos noted 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 grossly normal, no motor/sensory deficits, alert, oriented x 3, responsive Laboratory Tests 11/25/19 04:55: White Blood Count 9.4, Red Blood Count 4.04L, Hemoglobin 13.3, Hematocrit 39.4, Mean Corpuscular Volume 98, Mean Corpuscular Hemoglobin 32.9H, Mean Corpuscular Hemoglobin Concent 33.7, Red Cell Distribution Width 11.6, Platelet Count 201, Mean Platelet Volume 7.6, Neutrophils (%) (Auto) 76.9H, Lymphocytes (%) (Auto) 15.4L, Monocytes (%) (Auto) 5.4, Eosinophils (%) (Auto) 1.9, Basophils (%) (Auto ) 0.4, Sodium Level 137, Potassium Level 4.1, Chloride Level 104, Carbon Dioxide Level 26, Anion Gap 7, Blood Urea Nitrogen 5L, Creatinine 0.9, Estimat Glomerular Filtration Rate > 60, Glucose Level 118H, Calcium Level 8.4L Current Medications Medications (Trade) Dose Ordered Sig/Dasha Route PRN Reason Start Time Stop Time Status Last Admin Dose Admin Acetaminophen (Tylenol) 650 mg Q4H PRN ORAL FEVER 11/24/19 12:30 12/24/19 12:29 Al Hydroxide/Mg Hydroxide (Mylanta) 15 ml Q6H PRN ORAL DYSPEPSIA 11/24/19 12:30 12/24/19 12:29 Albuterol Sulfate (Proventil) 2.5 mg QIDPRN PRN HHN sob 11/24/19 14:30 11/29/19 14:29 11/25/19 10:20 Ciprofloxacin 200 ml @ 200 mls/hr Q12HR IV 11/24/19 21:00 12/01/19 20:59 11/25/19 08:33 Dextrose/ Electrolytes 1,000 ml @ 100 mls/hr Q10H IV 11/24/19 16:00 12/24/19 15:59 11/25/19 01:08 Diphenhydramine HCl (Benadryl) 25 mg Q8H PRN ORAL Itching/Pruritis 11/24/19 12:30 12/24/19 12:29 Docusate Sodium (Colace) 100 mg TWICE A DAY ORAL 11/24/19 18:00 12/24/19 17:59 11/25/19 08:33 Levothyroxine Sodium (Synthroid) 150 mcg Q24H ORAL 11/25/19 06:30 12/25/19 06:29 11/25/19 05:34 Magnesium Hydroxide (Mom) 30 ml BIDPRN PRN ORAL Constipation 11/24/19 12:30 12/24/19 12:29 Metronidazole 100 ml @ 100 mls/hr Q8HR IVPB 11/24/19 15:30 12/01/19 15:29 11/25/19 05:23 Morphine Sulfate (Morphine Sulfate) 1 mg Q4H PRN IVP pain scale 1-3 11/24/19 12:30 12/01/19 12:29 Morphine Sulfate (Morphine Sulfate) 2 mg Q4H PRN IVP pain scale 4-6 11/24/19 12:30 12/01/19 12:29 11/25/19 08:39 Morphine Sulfate (Morphine Sulfate) 4 mg Q4H PRN IVP pain score 7-10 11/24/19 12:30 12/01/19 12:29 11/25/19 05:23 Ondansetron HCl (Zofran) 4 mg Q6H PRN IVP Nausea & Vomiting 11/24/19 12:30 12/24/19 12:29 Sennosides (Senokot) 8.6 mg BIDPRN PRN ORAL Constipation 11/24/19 12:30 12/24/19 12:29 Temazepam (RestoriL) 7.5 mg DAILYPRN PRN ORAL Insomnia 11/24/19 12:30 12/01/19 12:29 Assessment/Plan Assessment/Plan ASSESSMENT uterine fibroids s/p abdominal myomectomy and appendectomy s/p recent UFE mild asthma prior smoker- quit hypothyroidism Allergy to Amoxicillin PLAN OF CARE MS floor CL diet - advance when passing gas IVF empiric abx agree with Cipro and Flagyl, given allergy to Amoxicillin /unknown if will tolerate other PCN derivative pain management IS at the bedside OOB to chair and ambulate as tolerated surgical wound care per surgeon recs resume Synthroid HHN prn DVT prophylaxis with SCD bowel regimen eating supportive care case discussed and evaluated by supervising physician Danie Christensen MD 11/26/19 1126: Subjective Allergies: Coded Allergies: AMOXICILLIN (Verified Allergy, Intermediate, hives, 11/24/19) Assessment/Plan Assessment/Plan Patient seen and examined with VOCATIONAL TEACHER. Agree with above A&P as it reflects our joint deliberations. Tamera Christy NP Nov 25, 2019 11:27 Danie Christensen MD Nov 26, 2019 11:26
[2019-11-25 11:43] VITALS: BP 110/57
--- NOTE | 2019-11-25 13:00 | NUR ---
CASE MANAGEMENT:REVIEW SI;POD #1 ABD MYOMECTOMY. LYSIS OF ADHESIONS. APPENDECTOMY. 99.8 58 18 90/63 95% ON RA BG 118 CA 8.4 IS;CIPROFLOXACIN IV Q12 IVF D52 @ 100 ML/HR METRONIDAZOLE IV Q8 PROVENTIL HHN MORPHINE IV Q4 PRN 3E MED SURG STATUS DCP;FROM HOME
--- NOTE | 2019-11-25 13:17 | NUR ---
INSURANCE ALL AVAILABLE CLINICALS AND REVIEWS HAVE BEEN FAXED TO: [facility] P: [phone] F: [phone]
[2019-11-25 16:00] VITALS: BP 113/58
--- NOTE | 2019-11-25 19:12 | NUR ---
HAND-OFF: Report given to Larisa CROCKER, pt in stable condition. - during my shift pt was able to ambulate around the room x1 with PT and around the room with steady gait. - Wharton cath was removed today and pt was able to void afterwards with no pain or burning. - pt was able to tolerate clear diet with no s/s of n/v.
--- NOTE | 2019-11-25 19:30 | NUR ---
NURSE NOTES: Received report and patient from [facility]. Patient laying in bed, A&Ox4 on room air. No s/s of acute distress. Patient reported pain of 7/10. Will give pain medications when due. Patient is on clear liquid diet at this time. IV site is clean dry and intact with IV running as ordered. Plan of care discussed.
[2019-11-25 20:00] VITALS: BP 122/64
--- NOTE | 2019-11-25 23:30 | NUR ---
NURSE NOTES: Patient ambulated 4 laps around hallway with steady gait. Abdominal binder was in place. Patient tolerated the activity and verbalized "It feels nice to be out of the bed."
[2019-11-26] VITALS (7 sets, daily range): BP systolic 104–122; BP diastolic 55–71
[2019-11-26] MEDS: Morphine Sulfate 2mg/ml Inj(IV/IM USE ONLY) IVP PRN ×2 (01:33→08:31)
[2019-11-26 05:05] LABS: BASOPHILS % (AUTO) 0.7 % (0.0-2.0); EOSINOPHILS % (AUTO) 2.9 % (0.0-3.0); HEMATOCRIT 37.9 % (37.0-47.0); HEMOGLOBIN 12.9 G/DL (12.0-16.0); LYMPHOCYTES % (AUTO) 15.1 % (20.0-45.0); MEAN CORPUSCULAR VOLUME 97 FL (80-99); MONOCYTES % (AUTO) 6.9 % (1.0-10.0); NEUTROPHILS % (AUTO) 74.5 % (45.0-75.0); PLATELET COUNT 184 K/UL (150-450); RED BLOOD COUNT 3.92 M/UL (4.20-5.40); RED CELL DISTRIBUTION WIDTH 11.3 % (11.6-14.8); WHITE BLOOD COUNT 9.5 K/UL (4.8-10.8)
[2019-11-26 05:18] LABS: ANION GAP 5 mmol/L (5-15); BLOOD UREA NITROGEN 2 mg/dL (7-18); CALCIUM 8.6 MG/DL (8.5-10.1); CARBON DIOXIDE 29 MMOL/L (21-32); CHLORIDE 106 MMOL/L (98-107); CREATININE 0.8 MG/DL (0.55-1.30); POTASSIUM 4.3 MMOL/L (3.5-5.1); SODIUM 140 MMOL/L (136-145)
--- NOTE | 2019-11-26 07:24 | NUR ---
NURSE NOTES: Report received from Larisa RN, rounds made. Patient resting in semi-fowlers position in bed. AOx4 calm. Denies need for pain medication at this time, no NV or SOB. IV infusing D5 1/2 NS + 20 KCL at 50 ml/hr, to RFA, site asymptomatic. On clear liquid diet, poor appetite, no bowel sounds, able to pass a little gas, abdomen soft, dressing CDI. Encouraged IS/ankle rotation. Bilateral SCDs on. Call light in reach, bed in lowest position, will continue to monitor.
--- NOTE | 2019-11-26 07:37 | NUR ---
NURSE HAND-OFF: Important Events on Shift:n/a Patient Status: stable Diet: clear liquid Pending Orders: n/a Pending Results/Labs:n/a Pending MD notification:n/a Latest Vital Signs: Temperature 98.3 , Pulse 73 , B/P 111 /71 , Respiratory Rate 18 , O2 SAT 97 , Room Air, O2 Flow Rate 3 . Vital Sign Comment: none Latest Michael Fall Score: 35 Fall Risk: Medium Risk Safety Measures: Call light Within Reach, Bed Alarm Zone 2, Side Rails Side Rails x2, Bed position Low and Locked. Fall Precautions: Yellow Socks Door Sign Report given to OBI Lovelace.
[2019-11-26] MEDS: Docusate 100mg cap ORAL SCH ×2 (08:31→18:12)
[2019-11-26] MEDS: D5 1/2NS w/KCl 20mEq 1,000 ML IV SCH (08:31)
--- NOTE | 2019-11-26 09:11 | Pulmonology Progress Note ---
Christy Tamera CYCLING INSTRUCTOR 11/26/19 0911: Subjective Allergies: Coded Allergies: AMOXICILLIN (Verified Allergy, Intermediate, hives, 11/24/19) Subjective post op day 2 afebrile, no leukocytosis tolerates CL diet, passing just little gas, pain controlled no n/v/abd pain Objective Last 24 Hour Vital Signs Date Time Temp Pulse Resp B/P (MAP) Pulse Ox O2 Delivery O2 Flow Rate FiO2 11/26/19 08:06 97.9 69 18 114/55 (74) 97 11/26/19 04:00 98.3 73 18 111/71 (84) 97 11/26/19 00:00 98.2 70 17 113/57 (75) 96 11/25/19 21:00 Room Air 11/25/19 20:00 99.2 64 18 122/64 (83) 97 64 11/25/19 16:00 97.8 64 18 113/58 (76) 98 11/25/19 12:48 98.1 11/25/19 11:43 98.1 67 18 110/57 (74) 98 11/25/19 10:35 69 18 99 Room Air 21 77 18 97 11/25/19 10:19 77 18 97 Room Air 21 11/25/19 09:09 98.6 Intake and Output 11/25/19 11/26/19 19:00 07:00 Intake Total 1200 ml 950 ml Output Total 1500 ml Balance -300 ml 950 ml Intake Oral 1200 ml 350 ml IV Total 600 ml Output Urine Total 1500 ml # Voids 4 Objective General Appearance: no apparent distress, alert - awake, young female Lines, tubes and drains: peripheral HEENT: normocephalic, atraumatic, anicteric, PERRL Neck: non-tender, normal alignment, supple Respiratory/Chest: chest wall non-tender, lungs clear, no respiratory distress , no accessory muscle use Cardiovascular/Chest: normal peripheral pulses, normal rate Abdomen: soft - hypoactive BS, very mild tenderness, lower abdominal dressing C/D/I Extremities: normal range of motion, non-tender, no calf tenderness, normal capillary refill Skin Exam: normal pigmentation, warm/dry, body tattoos noted 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: 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 normal, no motor/sensory deficits, alert, oriented x 3, responsive Laboratory Tests 11/26/19 04:45: White Blood Count 9.5, Red Blood Count 3.92L, Hemoglobin 12.9, Hematocrit 37.9, Mean Corpuscular Volume 97, Mean Corpuscular Hemoglobin 32.9H, Mean Corpuscular Hemoglobin Concent 34.0, Red Cell Distribution Width 11.3L, Platelet Count 184, Mean Platelet Volume 7.5, Neutrophils (%) (Auto) 74.5, Lymphocytes (%) (Auto) 15.1L, Monocytes (%) (Auto) 6.9, Eosinophils (%) (Auto) 2.9, Basophils (%) (Auto ) 0.7, Sodium Level 140, Potassium Level 4.3, Chloride Level 106, Carbon Dioxide Level 29, Anion Gap 5, Blood Urea Nitrogen 2L, Creatinine 0.8, Estimat Glomerular Filtration Rate > 60, Glucose Level 117H, Calcium Level 8.6 Current Medications Medications (Trade) Dose Ordered Sig/Dasha Route PRN Reason Start Time Stop Time Status Last Admin Dose Admin Acetaminophen (Tylenol) 650 mg Q4H PRN ORAL FEVER 11/24/19 12:30 12/24/19 12:29 Al Hydroxide/Mg Hydroxide (Mylanta) 15 ml Q6H PRN ORAL DYSPEPSIA 11/24/19 12:30 12/24/19 12:29 11/25/19 20:06 Albuterol Sulfate (Proventil) 2.5 mg QIDPRN PRN HHN sob 11/24/19 14:30 11/29/19 14:29 11/25/19 10:20 Ciprofloxacin 200 ml @ 200 mls/hr Q12HR IV 11/24/19 21:00 12/01/19 20:59 11/26/19 08:31 Dextrose/ Electrolytes 1,000 ml @ 50 mls/hr Q20H IV 11/25/19 14:30 12/25/19 14:29 11/26/19 08:31 Diphenhydramine HCl (Benadryl) 25 mg Q8H PRN ORAL Itching/Pruritis 11/24/19 12:30 12/24/19 12:29 Docusate Sodium (Colace) 100 mg TWICE A DAY ORAL 11/24/19 18:00 12/24/19 17:59 11/26/19 08:31 Hydromorphone HCl (Dilaudid) 2 mg Q2H PRN IVP Severe Pain (Pain Scale 7-10) 11/25/19 16:22 12/02/19 16:21 11/26/19 05:03 Levothyroxine Sodium (Synthroid) 150 mcg Q24H ORAL 11/25/19 06:30 12/25/19 06:29 11/26/19 05:38 Magnesium Hydroxide (Mom) 30 ml BIDPRN PRN ORAL Constipation 11/24/19 12:30 12/24/19 12:29 Metronidazole 100 ml @ 100 mls/hr Q8HR IVPB 11/24/19 15:30 12/01/19 15:29 11/26/19 05:39 Morphine Sulfate (Morphine Sulfate) 1 mg Q4H PRN IVP pain scale 1-3 11/24/19 12:30 12/01/19 12:29 Morphine Sulfate (Morphine Sulfate) 2 mg Q4H PRN IVP pain scale 4-6 11/24/19 12:30 12/01/19 12:29 11/26/19 08:31 Ondansetron HCl (Zofran) 4 mg Q6H PRN IVP Nausea & Vomiting 11/24/19 12:30 12/24/19 12:29 11/26/19 05:05 Sennosides (Senokot) 8.6 mg BIDPRN PRN ORAL Constipation 11/24/19 12:30 12/24/19 12:29 Temazepam (RestoriL) 7.5 mg DAILYPRN PRN ORAL Insomnia 11/24/19 12:30 12/01/19 12:29 Assessment/Plan Assessment/Plan ASSESSMENT uterine fibroids s/p abdominal myomectomy and appendectomy s/p recent UFE mild asthma prior smoker- quit hypothyroidism Allergy to Amoxicillin PLAN OF CARE MS floor CL diet - advance when passing gas surgeon still recommends continue to CL ambulate q 2 hrs, discussed with pt and encouraged IVF, decrease rate empiric abx : Cipro and Flagyl, given allergy to Amoxicillin /unknown if will tolerate other PCN derivative pain management IS at the bedside OOB to chair and ambulate frequently surgical wound care per surgeon recs resume Synthroid HHN prn DVT prophylaxis with SCD bowel regimen eating supportive care case discussed and evaluated by supervising physician Danie Christensen MD 11/26/19 1127: Subjective Allergies: Coded Allergies: AMOXICILLIN (Verified Allergy, Intermediate, hives, 11/24/19) Assessment/Plan Assessment/Plan Patient seen and examined with CYCLING INSTRUCTOR. Agree with above A&P as it reflects our joint deliberations. POD 2 doing well OOB using IS started on reg diet + flatus no BM pain controlled dispo planning DVT Px Tamera Christy NP Nov 26, 2019 09:11 Danie Christensen MD Nov 26, 2019 11:27
--- NOTE | 2019-11-26 11:15 | NUR ---
PT NOTE Patient is at independent/supervised level for bed mobility, transfers and ambulation without an assistive device. Skilled inpatient PT intervention no longer needed, patient is safe to function with nursing supervision. Patient discharged from PT, [place] CROCKER notified. Addendum: 11/26/19 at 1116 by BERYL DAVISON PT Amended: Links added.
--- NOTE | 2019-11-26 12:08 | NUR ---
CASE MANAGEMENT:REVIEW 11/26/19 SI: POD #2 S/P HEMILAMINECTOMY AND MICRODISKECTOMY 97.9 69 18 114/55 97% ON RA IS: IVF@50/HR IV CIPRO Q12 IV FLAGYL Q8HRS IV MORPHINE Q4HRS PRN IV DILAUDID Q2HRS PRN : MED/SURG STATUS 3 EAST PLAN: ADVANCE TO REGULAR DIET
--- NOTE | 2019-11-26 12:19 | NUR ---
INSURANCE CLINCALS AND REVIEW FAXED TO [facility] T: [phone] F: [phone] REF# [id number]
[2019-11-26] MEDS ORDERED: oxyCODONE HCL/Acetaminophen 5/325mg ORAL PRN (12:30)
[2019-11-26] MEDS ORDERED: traMADol 50mg tab ORAL PRN (12:30)
--- NOTE | 2019-11-26 14:31 | General Surgery Progress Note ---
General Surgery-Progress Note Subjective Procedure Performed abdominal myomectomy, lysis of adhesions, appendectomy Symptoms: improved, tolerating diet, voiding well, passing flatus, pain decreased Objective Last 24 Hour Vital Signs Date Time Temp Pulse Resp B/P (MAP) Pulse Ox O2 Delivery O2 Flow Rate FiO2 11/26/19 12:00 98.3 56 16 118/59 (78) 98 11/26/19 09:00 Room Air 11/26/19 08:06 97.9 69 18 114/55 (74) 97 11/26/19 04:00 98.3 73 18 111/71 (84) 97 11/26/19 00:00 98.2 70 17 113/57 (75) 96 11/25/19 21:00 Room Air 11/25/19 20:00 99.2 64 18 122/64 (83) 97 64 11/25/19 16:00 97.8 64 18 113/58 (76) 98 I&O Intake and Output 11/25/19 11/26/19 19:00 07:00 Intake Total 1200 ml 950 ml Output Total 1500 ml Balance -300 ml 950 ml Intake Oral 1200 ml 350 ml IV Total 600 ml Output Urine Total 1500 ml # Voids 4 Dressing: dry, saturated Wound: clean, dry, intact Drains: none Cardiovascular: RSR Respiratory: clear Abdomen: soft, flat, tenderness, present bowel sounds Laboratory Tests Test 11/26/19 04:45 White Blood Count 9.5 K/UL (4.8-10.8) Red Blood Count 3.92 M/UL (4.20-5.40) L Hemoglobin 12.9 G/DL (12.0-16.0) Hematocrit 37.9 % (37.0-47.0) Mean Corpuscular Volume 97 FL (80-99) Mean Corpuscular Hemoglobin 32.9 PG (27.0-31.0) H Mean Corpuscular Hemoglobin Concent 34.0 G/DL (32.0-36.0) Red Cell Distribution Width 11.3 % (11.6-14.8) L Platelet Count 184 K/UL (150-450) Mean Platelet Volume 7.5 FL (6.5-10.1) Neutrophils (%) (Auto) 74.5 % (45.0-75.0) Lymphocytes (%) (Auto) 15.1 % (20.0-45.0) L Monocytes (%) (Auto) 6.9 % (1.0-10.0) Eosinophils (%) (Auto) 2.9 % (0.0-3.0) Basophils (%) (Auto) 0.7 % (0.0-2.0) Sodium Level 140 MMOL/L (136-145) Potassium Level 4.3 MMOL/L (3.5-5.1) Chloride Level 106 MMOL/L (98-107) Carbon Dioxide Level 29 MMOL/L (21-32) Anion Gap 5 mmol/L (5-15) Blood Urea Nitrogen 2 mg/dL (7-18) L Creatinine 0.8 MG/DL (0.55-1.30) Estimat Glomerular Filtration Rate > 60 mL/min (>60) Glucose Level 117 MG/DL (74-106) H Calcium Level 8.6 MG/DL (8.5-10.1) Additional Comments pathology benign Assessment Post-op Diagnosis labs stable post op, findings shared with patient Plan Additional Comments pathology benign, tolerating diet, passing flatus. on oral pain meds. possible discharge. Damien Bal MD Nov 26, 2019 14:31
--- NOTE | 2019-11-26 14:59 | NUR ---
sales communications manager note: CM department received a fax from [facility] Fax addressed to patient CM faxed information to admitting department fax [phone] Attention: Candice
--- NOTE | 2019-11-26 17:00 | NUR ---
NURSE NOTES: Spoke to Dr. Draper three times this shift, updated on patient's status. Patient up ambulating in halls, with PT and self, gait steady, slow. No complains of dizziness/weakness. Up to chair/up to bathroom throughout shift. Voids well, small bloody clots, cristian-pad with scant bloody vaginal bleeding. Medicated with Morphine 2 mg IV x1 and Tramadol 50 mg PO x1, tolerated well, pain 2/10 at this time. Ice pack provided throughout shift. Lower abdominal surgical site AMADOU, dane with steri strips, no drainage/redness/swelling. Provided larger binder per patient request. Tolerating regular diet, poor appetite, no NV, encouraged PO fluid intake.
--- NOTE | 2019-11-26 18:38 | NUR ---
NURSE NOTES: Dr. Liz notified of right upper hip blister (intact), orders to monitor area.
--- NOTE | 2019-11-26 19:10 | NUR ---
NURSE HAND-OFF: Important Events on Shift:Blister to right hip noted Patient Status: stable Diet: regular/vegetarian Pending Orders: none Pending Results/Labs:none Pending MD notification:none Latest Vital Signs: Temperature 98.1 , Pulse 79 , B/P 104 /56 , Respiratory Rate 18 , O2 SAT 96 , Room Air, O2 Flow Rate 3 . Vital Sign Comment: none Latest Michael Fall Score: 35 Fall Risk: Medium Risk Safety Measures: Call light Within Reach, Bed Alarm Zone 2, Side Rails Side Rails x2, Bed position Low and Locked. Fall Precautions: Yellow Socks Door Sign Report given to Larisa CROCKER.
--- NOTE | 2019-11-26 20:09 | NUR ---
NURSE NOTES: Received patient and report from [place]. Patient was sitting in the chair upon entry into the room. A&Ox4 and did not have any s/s of acute distress. No pain. Surgical wound assessed to be clean dry and intact and blister on right hip noted. Will continue to monitor. Plan of care discussed.
--- NOTE | 2019-11-26 20:30 | NUR ---
NURSE NOTES: Patient ambulated in the [place], steady gait, no acute distress.
[2019-11-26] MEDS: Albuterol ud Inhalation HHN PRN (22:26)
[2019-11-27 04:00] VITALS: BP 128/73
[2019-11-27 05:33] LABS: ANION GAP 7 mmol/L (5-15); BLOOD UREA NITROGEN 2 mg/dL (7-18); CALCIUM 9.2 MG/DL (8.5-10.1); CARBON DIOXIDE 30 MMOL/L (21-32); CHLORIDE 103 MMOL/L (98-107); CREATININE 0.8 MG/DL (0.55-1.30); POTASSIUM 4.1 MMOL/L (3.5-5.1); SODIUM 140 MMOL/L (136-145)
[2019-11-27 05:38] LABS: BASOPHILS % (AUTO) 0.9 % (0.0-2.0); EOSINOPHILS % (AUTO) 4.8 % (0.0-3.0); HEMOGLOBIN 12.8 G/DL (12.0-16.0); LYMPHOCYTES % (AUTO) 19.5 % (20.0-45.0); MEAN CORPUSCULAR VOLUME 99 FL (80-99); NEUTROPHILS % (AUTO) 67.8 % (45.0-75.0); PLATELET COUNT 171 K/UL (150-450); RED BLOOD COUNT 3.82 M/UL (4.20-5.40); RED CELL DISTRIBUTION WIDTH 12.1 % (11.6-14.8); WHITE BLOOD COUNT 7.9 K/UL (4.8-10.8)
--- NOTE | 2019-11-27 07:22 | NUR ---
NURSE NOTES: Report received from Larisa RN, rounds made. Patient sitting up in chair. AOx4 calm on RA. Denies need for pain medication at this time, no NV or SOB. RFA saline lock, site asymptomatic. On regular diet, encouraged PO fluid intake, appetite improving, able to pass a little more gas, abdomen soft, bowel sounds present, lower abdomen dane/steri strips remains unchanged (small amount of old bloody drainage noted). Encouraged IS/ankle rotation. Call light in reach, bed in lowest position, will continue to monitor.
--- NOTE | 2019-11-27 07:29 | NUR ---
NURSE HAND-OFF: Important Events on Shift:still no bm but passing flatus Patient Status: stable Diet: Regular Pending Orders: none Pending Results/Labs:none Pending MD notification:none Latest Vital Signs: Temperature 98.4 , Pulse 84 , B/P 128 /73 , Respiratory Rate 17 , O2 SAT 94 , Room Air, O2 Flow Rate 3 . Vital Sign Comment: none Latest Michael Fall Score: 35 Fall Risk: Medium Risk Safety Measures: Call light Within Reach, Bed Alarm Zone 2, Side Rails Side Rails x2, Bed position Low and Locked. Fall Precautions: Yellow Socks Door Sign Report given to OBI Lovelace.
--- NOTE | 2019-11-27 07:47 | NUR ---
NURSE NOTES: Spoke to Dr. Bal, updated on patient current status, labs, pain, appetite, activity. No further orders at this time.
[2019-11-27 08:00] VITALS: BP 117/58
[2019-11-27] MEDS: Docusate 100mg cap ORAL SCH (08:28)
[2019-11-27 12:00] VITALS: BP 117/64
--- NOTE | 2019-11-27 12:13 | Pulmonology Progress Note ---
Subjective Constitutional: Reports: no symptoms HEENT: Repors: no symptoms Respiratory: Reports: no symptoms Cardiovascular: Reports: no symptoms Gastrointestinal/Abdominal: Reports: other - pain well controlled willie PO + flatus no BM no NV Genitourinary: Reports: no symptoms Neurologic: Reports: no symptoms Psychiatric: Reports: no symptoms Skin: Reports: no symptoms Endocrine: Reports: no symptoms Hematologic: Reports: no symptoms Musculoskeletal: Reports: no symptoms Allergies: Coded Allergies: AMOXICILLIN (Verified Allergy, Intermediate, hives, 11/24/19) Objective Last 24 Hour Vital Signs Date Time Temp Pulse Resp B/P (MAP) Pulse Ox O2 Delivery O2 Flow Rate FiO2 11/27/19 09:00 Room Air 11/27/19 08:00 98.3 73 20 117/58 (77) 95 11/27/19 04:00 98.4 84 17 128/73 (91) 94 11/26/19 23:46 98.9 89 19 122/65 (84) 94 11/26/19 22:36 74 18 99 Room Air 21 11/26/19 22:26 73 18 96 Room Air 21 11/26/19 21:00 Room Air 11/26/19 19:56 99.0 76 18 106/61 (76) 96 11/26/19 19:16 79 18 96 Room Air 21 11/26/19 18:38 Room Air 11/26/19 16:00 98.1 79 16 104/56 (72) 96 Intake and Output 11/26/19 11/27/19 19:00 07:00 Intake Total 400 ml 800 ml Balance 400 ml 800 ml Intake Oral 400 ml 800 ml # Voids 4 3 General Appearance: WD/WN, no acute distress HEENT: normocephalic, atraumatic, anicteric, mucous membranes moist Respiratory: chest wall non-tender, lungs clear, normal breath sounds, no respiratory distress, no accessory muscle use Cardiovascular: normal peripheral pulses, normal rate, regular rhythm Abdomen: normal bowel sounds, soft, non tender, no organomegaly, non distended , no mass, other - wound dressed Extremities: no cyanosis, no clubbing, no edema Laboratory Tests 11/27/19 04:40: White Blood Count 7.9, Red Blood Count 3.82L, Hemoglobin 12.8, Hematocrit 38.0, Mean Corpuscular Volume 99, Mean Corpuscular Hemoglobin 33.5H, Mean Corpuscular Hemoglobin Concent 33.7, Red Cell Distribution Width 12.1, Platelet Count 171, Mean Platelet Volume 8.4, Neutrophils (%) (Auto) 67.8, Lymphocytes (%) (Auto) 19.5L, Monocytes (%) (Auto) 7.0, Eosinophils (%) (Auto) 4.8H, Basophils (%) ( Auto) 0.9, Sodium Level 140, Potassium Level 4.1, Chloride Level 103, Carbon Dioxide Level 30, Anion Gap 7, Blood Urea Nitrogen 2L, Creatinine 0.8, Estimat Glomerular Filtration Rate > 60, Glucose Level 102, Calcium Level 9.2 Current Medications Medications (Trade) Dose Ordered Sig/Dasha Route PRN Reason Start Time Stop Time Status Last Admin Dose Admin Acetaminophen (Tylenol) 650 mg Q4H PRN ORAL FEVER 11/24/19 12:30 12/24/19 12:29 Al Hydroxide/Mg Hydroxide (Mylanta) 15 ml Q6H PRN ORAL DYSPEPSIA 11/24/19 12:30 12/24/19 12:29 11/25/19 20:06 Albuterol Sulfate (Proventil) 2.5 mg QIDPRN PRN HHN sob 11/24/19 14:30 11/29/19 14:29 11/26/19 22:26 Diphenhydramine HCl (Benadryl) 25 mg Q8H PRN ORAL Itching/Pruritis 11/24/19 12:30 12/24/19 12:29 Docusate Sodium (Colace) 100 mg TWICE A DAY ORAL 11/24/19 18:00 12/24/19 17:59 11/27/19 08:28 Famotidine (Pepcid) 20 mg DAILY ORAL 11/26/19 11:00 02/24/20 10:59 11/27/19 08:28 Hydromorphone HCl (Dilaudid) 2 mg Q2H PRN IVP Severe Pain (Pain Scale 7-10) 11/25/19 16:22 12/02/19 16:21 11/26/19 05:03 Levothyroxine Sodium (Synthroid) 150 mcg Q24H ORAL 11/25/19 06:30 12/25/19 06:29 11/27/19 05:36 Magnesium Hydroxide (Mom) 30 ml BIDPRN PRN ORAL Constipation 11/24/19 12:30 12/24/19 12:29 11/27/19 05:39 Morphine Sulfate (Morphine Sulfate) 1 mg Q4H PRN IVP pain scale 1-3 11/24/19 12:30 12/01/19 12:29 Morphine Sulfate (Morphine Sulfate) 2 mg Q4H PRN IVP pain scale 4-6 11/24/19 12:30 12/01/19 12:29 11/26/19 08:31 Ondansetron HCl (Zofran) 4 mg Q6H PRN IVP Nausea & Vomiting 11/24/19 12:30 12/24/19 12:29 11/26/19 05:05 Oxycodone/ Acetaminophen (Percocet 5-325) 1 tab Q3H PRN ORAL Severe Pain (Pain Scale 7-10) 11/26/19 12:30 12/03/19 12:29 Sennosides (Senokot) 8.6 mg BIDPRN PRN ORAL Constipation 11/24/19 12:30 12/24/19 12:29 Temazepam (RestoriL) 7.5 mg DAILYPRN PRN ORAL Insomnia 11/24/19 12:30 12/01/19 12:29 Tramadol HCl (Ultram) 50 mg Q3H PRN ORAL Moderate Pain (Pain Scale 4-6) 11/26/19 12:30 12/03/19 12:29 11/26/19 14:32 Assessment/Plan Problems: (1) S/P myomectomy (2) S/P appendectomy (3) symptomatic mtyomata Assessment/Plan POD 3 doing well willie diet + flatus no BM pain well controlled OOB Pain control/supportive care Maria R-operative Abx IS DVT Px D/C home today D/W RN and Danie Barton MD Nov 27, 2019 12:13
[2019-11-27] MEDS ORDERED: PERCOCET 5-3251 EACH ORAL (12:57)
[2019-11-27] MEDS ORDERED: TRAMADOL HCL50 MG ORAL (12:58)
--- NOTE | 2019-11-27 13:30 | NUR ---
NURSE NOTES: Discharge instructions and prescription x1 reviewed with patient, verbalized understanding. All belongings, discharge instructions, prescription x1, ice packs x2 given to patient. RFA heplock discontinued, no active bleeding. Patient ambulated down to [facility] with Tabitha HO, in stable condition. Discharged home at 1330.
--- NOTE | 2019-11-28 12:30 | Discharge Summary ---
Discharge Summary Discharge Summary _ DATE OF ADMISSION: 11/24/2019 DATE OF DISCHARGE: 11/27/2019 DISCHARGED BY: REASON FOR ADMISSION: 34 y/old female with PMH of hypothyroidism, mild asthma , fibroid uterus, s/p recent uterine artery embolization, presented for elective abdominal myomectomy and appendectomy. CONSULTANTS: APPAREL MANAGER surgery Dr. Hu Oneill General surgeon Dr. Menon HOSPITAL COURSE: Postoperatively patient was admitted to medical surgical floor. IV fluids and empiric antibiotics provided. Pain management was addressed as needed. The next day after passing flatus, patient started on clear liquid diet. Ambulation and incentive spirometry was encouraged. DVT prophylaxis with SCD provided. Diet was advanced to regular as tolerated. Patient was able to tolerate diet. IV fluids and empiric antibiotics discontinued. Pain management was addressed, and pain was controlled Synthroid was resumed. Respiratory status remained stable. Pulse oximetry was stable on room air. Bowel regimen instituted. Patient clinically stabilized and was ready for discharge home. FINAL DIAGNOSES: Symptomatic myomata Status post abdominal myomectomy and appendectomy Status post recent fibroid embolization Mild asthma Prior smoker /quit Hypothyroidism DISCHARGE MEDICATIONS: See Medication Reconciliation list. DISCHARGE INSTRUCTIONS: Patient was discharged home. Follow-up with a surgeon as advised. Tamera Christy NP Nov 28, 2019 12:30
== END 2019-11-27 13:34 | disposition home or self-care (01) | DRG 743 ==
LOC: SDSOVERFLO 08:21 → 3E 14:15
PROC: 0UB90ZZ Excision of Uterus, Open Approach (ICD-10-PCS; principal; 2019-11-24 11:00)
PROC: 0DTJ0ZZ Resection of Appendix, Open Approach (ICD-10-PCS; principal; 2019-11-24 11:00)
DX: D25.9 Leiomyoma of uterus, unspecified (principal); R10.2 Pelvic and perineal pain; E03.9 Hypothyroidism, unspecified; J45.909 Unspecified asthma, uncomplicated; Z87.891 Personal history of nicotine dependence; Z88.1 Allergy status to other antibiotic agents
CPT/HCPCS: 36415; 80048; 81025; 85007; 85025; 85610; 85730; 86850; 86900; 86901; 87081; 94003; 94150; 94640; 94664; J2180; J2250; J2405; J2710; J2795; U0002